=== PATIENT | male | born 2000 | race Caucasian/White ===

== ENCOUNTER 2021-04-10 22:41 | Emergency (ER) | payer OTHER ==
[~2021-04-10] VITALS: Ht 185.4 cm; Wt 79.7 kg
[2021-04-10 22:41] VITALS: BP 124/75
[2021-04-10] MEDS ORDERED: CIPROFLOXACIN 0.3% OPHTH SOLN 2.5ML OU ONE (23:25)
[2021-04-10] MEDS ORDERED: CIPR0.3S6 OS (23:37)
== END 2021-04-11 00:11 | disposition home or self-care (01) ==
LOC: M ED 22:41
DX: H10.33 Unspecified acute conjunctivitis, bilateral (principal)

== ENCOUNTER 2022-07-23 07:59 | Emergency (ER) | payer OTHER ==
[~2022-07-23] VITALS: Ht 182.9 cm; Wt 86.6 kg
[~2022-07-23 07:59] MED LIST: CIPR0.3S37 OS
[2022-07-23] MEDS ORDERED: IBUPROFEN 800 MG TAB PO ONE (09:20)
[2022-07-23] MEDS ORDERED: AMOX875T2 PO (10:07)
[2022-07-23 10:22] VITALS: BP 131/83
== END 2022-07-23 10:36 | disposition home or self-care (01) ==
LOC: M ED 07:59
DX: J03.90 Acute tonsillitis, unspecified (principal); Z79.2 Long term (current) use of antibiotics